=== PATIENT | male | born 1985 | race Caucasian/White ===

== ENCOUNTER 2023-04-02 06:54 | Day surgery (SDC) | payer OTHER ==
[~2023-04-02] VITALS: Ht 177.8 cm; Wt 90.7 kg
[2023-04-02] MEDS ORDERED: diphenhydrAMINE 50 MG/ML VIAL ONE (07:27)
[2023-04-02] MEDS ORDERED: fentaNYL citrate 0.05 MG/ML VIAL ONE (07:27)
[2023-04-02] MEDS ORDERED: LIDOCAINE 2% 100 MG/5 ML UJET TP ONE (07:28)
[2023-04-02] MEDS ORDERED: MIDAZOLAM 5 MG/5 ML VIAL ONE (07:28)
[2023-04-02] MEDS ORDERED: diphenhydrAMINE 50 MG/ML VIAL IVP ONE (08:45)
[2023-04-02] MEDS ORDERED: MIDAZOLAM 5 MG/5 ML VIAL IV ONE (08:45)
[2023-04-02] MEDS ORDERED: fentaNYL citrate 0.05 MG/ML VIAL IVP ONE (08:45)
== END 2023-04-02 08:35 | disposition home or self-care (01) ==
LOC: MDS 06:54 → MMU 06:54 → MDS 08:35
PROVIDERS: ATTEND Internal Medicine Gastroenterology
DX: K62.5 Hemorrhage of anus and rectum (principal); K64.8 Other hemorrhoids; Z80.0 Family history of malignant neoplasm of digestive organs
CPT/HCPCS: 45380; J1200; J2250; J3010